=== PATIENT | female | born 1985 | race Caucasian/White ===

== ENCOUNTER 2017-01-19 17:33 | Emergency (ER) | payer OTHER ==
[~2017-01-19] VITALS: Ht 162.6 cm; Wt 60.0 kg
[2017-01-19 17:42] VITALS: Ht 162.6 cm; Wt 60.0 kg
--- NOTE | 2017-01-19 17:52 | ERD ---
ER Documentation Chief Complaint Chief Complaint RT AXILLA BREAST ABCESS. ROS All systems reviewed and are negative except as per history of present illness. Physical Exam Vitals Vital Signs Date Time Temp Pulse Resp B/P Pulse Ox O2 Delivery O2 Flow Rate FiO2 01/19/17 17:42 98.6 65 16 113/62 99 Physical Exam Const: [] Head: Atraumatic Eyes: Normal Conjunctiva ENT: Normal External Ears, Nose and Mouth. Neck: Full range of motion..~ No meningismus. Resp: Clear to auscultation bilaterally Cardio: Regular rate and rhythm, no murmurs Abd: Soft, non tender, non distended. Normal bowel sounds Skin: No petechiae or rashes Back: No midline or flank tenderness Ext: No cyanosis, or edema Neur: Awake and alert Psych: Normal Mood and Affect Results 24 hrs Current Medications Medications (Trade) Dose Ordered Sig/Dl Route PRN Reason Start Time Stop Time Status Last Admin Dose Admin Lidocaine (Xylocaine 1% (Mdv) 20 ml) 5 ml ONCE ONCE IM 01/19/17 18:00 01/19/17 18:01 DC Sodium Bicarbonate (Na Bicarbonate 4.2% Syr) 5 meq ONCE ONCE IV* 01/19/17 18:00 01/19/17 18:01 DC NNEKA TREADWELL Jan 19, 2017 17:52
[2017-01-19] MEDS ORDERED: LIDOCAINE 1% (MDV) 20 ML INJ IM ONE (18:00)
[2017-01-19] MEDS ORDERED: NA BICARBONATE 4.2% INFANT SYG IV* ONE (18:00)
[2017-01-19] MEDS ORDERED: HYDR-902 PO (18:57)
[2017-01-19] MEDS ORDERED: CEPH-443 PO (18:57)
--- NOTE | 2017-01-19 19:00 | ERD ---
ER Documentation Chief Complaint Chief Complaint RT AXILLA BREAST ABCESS. HPI Is a 31-year-old female with a right abscess to the axilla for the past 4 days. The patient went to an urgent care and they did a attempted needle aspiration with nothing but blood. The patient is having some pus discharge it is since stopped. The past day. No fever. Pain is described as sharp worse with ROS All systems reviewed and are negative except as per history of present illness. Medications Home Meds Active Scripts Hydrocodone/Acetaminophen ([place] 10-325 Tablet) 1 Each Tablet, 1 TAB PO Q6H Y for PAIN, #20 TAB Prov:LEKKOS,APOSTOLOS A. DO 01/19/17 Cephalexin* (Keflex*) 500 Mg Capsule, 500 MG PO QID for 5 Days, CAP Prov:LEKKOS,APOSTOLOS A. DO 01/19/17 Allergies Allergies: Coded Allergies: No Known Allergy (Unverified , 01/19/17) PMhx/Soc Medical and Surgical Hx: pt denies Medical Hx, pt denies Surgical Hx Hx Alcohol Use: Yes (socail) Hx Substance Use: No Hx Tobacco Use: No Smoking Status: Never smoker FmHx Family History: No coronary disease Physical Exam Vitals Vital Signs Date Time Temp Pulse Resp B/P Pulse Ox O2 Delivery O2 Flow Rate FiO2 01/19/17 17:42 98.6 65 16 113/62 99 Physical Exam Const: Head: Atraumatic Eyes: Normal Conjunctiva ENT: Normal External Ears, Nose and Mouth. Neck: Full range of motion..~ No meningismus. Resp: Clear to auscultation bilaterally Cardio: Regular rate and rhythm, no murmurs Abd: Soft, non tender, non distended. Normal bowel sounds Skin: No petechiae or rashes, there is a quarter size abscess to the right axilla that is tender with surrounding erythema and indurated with a small area of central fluctuance Back: No midline or flank tenderness Ext: No cyanosis, or edema Neur: Awake and alert Psych: Normal Mood and Affect Results 24 hrs Current Medications Medications (Trade) Dose Ordered Sig/Dl Route PRN Reason Start Time Stop Time Status Last Admin Dose Admin Lidocaine (Xylocaine 1% (Mdv) 20 ml) 5 ml ONCE ONCE IM 01/19/17 18:00 01/19/17 18:01 DC Sodium Bicarbonate (Na Bicarbonate 4.2% Syr) 5 meq ONCE ONCE IV* 01/19/17 18:00 01/19/17 18:01 DC Procedures/MDM Abscess Incision and Drainage with irrigation by me: Location: Right axilla Anesthesia: Local 1% Lidocaine with sodium bicarbonate Technique: Irrigated. Disrupted loculations w/ instrumentation Packing: Yes Complications: Neurovascularly intact post procedure 48 hour wound check. Scar minimization instructions given. Patient's skin symptoms have stabilized while they have been evaluated in the department and are appropriate for outpatient care and work up. Exam and w/u not consistent w/ sepsis, deep space infection, or foreign body. Departure Diagnosis: Primary Impression: Abscess Condition: Stable Patient Instructions: Abscess, Incision And Drainage Referrals: NO PRIMARY,CARE PHYSICIAN (PCP) ROSANNE CALDREON DO Jan 19, 2017 19:00
[2017-01-19] MEDS ORDERED: IBUPROFEN 800 MG TAB PO ONE (19:30)
== END 2017-01-19 19:25 | disposition home or self-care (01) ==
LOC: FTE 17:33
DX: L02.411 Cutaneous abscess of right axilla (principal)